=== PATIENT | female | born 1990 | race Caucasian/White ===

== ENCOUNTER 2021-05-30 10:00 | Observation (INO) | payer MEDICAID ==
[2021-05-30] MEDS ORDERED: PREN27TA7 OR (11:46)
== END 2021-05-30 11:56 | disposition home or self-care (01) ==
LOC: LDRP 10:00
PROVIDERS: ADMIT Obstetrics & Gynecology; ATTEND Obstetrics & Gynecology
DX: O10.913 Unspecified pre-existing hypertension complicating pregnancy, third trimester (principal); O36.5930 Maternal care for other known or suspected poor fetal growth, third trimester, not applicable or unspecified; Z3A.30 30 weeks gestation of pregnancy
CPT/HCPCS: 59025; 76818; 81002; 94760; G0378

== ENCOUNTER 2021-06-06 08:26 | Observation (INO) | payer MEDICAID ==
[~2021-06-06 08:26] MED LIST: PREN27TA7 OR
[2021-06-20] MEDS ORDERED: LABE200T6 GT (21:44)
== END 2021-06-13 17:01 | disposition home or self-care (01) ==
LOC: LDRP 06-13 14:30
PROVIDERS: ADMIT Obstetrics & Gynecology; ATTEND Obstetrics & Gynecology
DX: O36.5930 Maternal care for other known or suspected poor fetal growth, third trimester, not applicable or unspecified (principal); O10.913 Unspecified pre-existing hypertension complicating pregnancy, third trimester; Z3A.32 32 weeks gestation of pregnancy
CPT/HCPCS: 59025; 76818; 81002; 94760; G0378

== ENCOUNTER 2021-06-07 18:58 | Observation (INO) | payer MEDICAID ==
[~2021-06-07] VITALS: Ht 172.7 cm; Wt 82.6 kg
== END 2021-06-07 20:15 | disposition home or self-care (01) ==
LOC: LDRP 18:58
PROVIDERS: ADMIT Obstetrics & Gynecology; ATTEND Obstetrics & Gynecology
DX: O10.913 Unspecified pre-existing hypertension complicating pregnancy, third trimester (principal); O36.5930 Maternal care for other known or suspected poor fetal growth, third trimester, not applicable or unspecified; Z3A.31 31 weeks gestation of pregnancy
CPT/HCPCS: 59025; 76818; 81002; 94760; G0378

== ENCOUNTER 2021-06-19 08:15 | Observation (INO) | payer MEDICAID ==
[~2021-06-19] VITALS: Ht 172.7 cm; Wt 81.6 kg
[2021-06-20 17:27] LABS: Urine Bacteria FEW /hpf (None Seen); Urine Blood Negative /uL (Negative); Urine Specific Gravity 1.005 (1.001-1.035); Urine WBC 15 /hpf (0 - 5)
[2021-06-20 17:43] LABS: Protein, Urine 12.9 mg/dL (0.0-11.9)
[2021-06-20 18:05] LABS: Albumin 2.9 g/dL (3.4-5.0); Calcium 9.3 mg/dL (8.5-10.1); Potassium 3.5 mmol/L (3.5-5.1)
[2021-06-20 18:08] LABS: Basophils # (auto) 0 10 ^3/uL (0-0.2); Basophils % (auto) 0.3 % (0.0-2.0); Eosinophils # (auto) 0.1 10 ^3/uL (0-0.8); Eosinophils % (auto) 0.7 % (0.0-7.0); Hematocrit 36.4 % (36.0-46.0); Hemoglobin 12.4 g/dL (12.2-16.2); Lymphocytes # (auto) 2.6 10 ^3/uL (0.4-5.4); Lymphocytes % (auto) 21.1 % (10.0-50.0); Mean Corpuscular Volume 88.2 fL (80.0-100.0); Monocytes % (auto) 7.7 % (0.0-12.0); Neutrophils # (auto) 8.7 10 ^3/uL (1.6-8.6); Neutrophils % (auto) 70.2 % (37.0-80.0); Nucleated Red Blood Cells % 0.3 %; Red Blood Cells 4.13 10^6/uL (4.0-5.20); Red Cell Distribution Width 13.2 % (11.8-14.3); White Blood Cell 12.4 10^3/uL (4.4-10.8)
[2021-06-20 18:09] LABS: BUN/Creatinine Ratio 9.2; Bilirubin, Total 0.2 mg/dL (0.2-1.0); Total Protein 7.2 g/dL (6.4-8.2); Uric Acid 4.5 mg/dL (2.6-6.0)
[2021-06-20 18:44] LABS: INR 0.86 (0.9-1.15); Partial Thromboplastin Time 28.7 sec (23.6-33.0)
[2021-06-20] MEDS ORDERED: LABETALOL HCL 200 MG TAB PO ONE (19:15)
[2021-06-20] MEDS ORDERED: TERBUTALINE SULFATE 1 MG/ML 1ML VIAL SC SCH (19:15)
[2021-06-20] MEDS ORDERED: LABE200T6 PO (21:44)
[2021-06-20] MEDS ORDERED: BETAMETHASONE ACET (30mg/5ml) 5ml Vial 6mg/ml IM SCH (22:00)
== END 2021-06-20 21:53 | disposition home or self-care (01) ==
LOC: LDRP 06-20 14:44
PROVIDERS: ADMIT Obstetrics & Gynecology; ATTEND Obstetrics & Gynecology
DX: O10.913 Unspecified pre-existing hypertension complicating pregnancy, third trimester (principal); O36.5930 Maternal care for other known or suspected poor fetal growth, third trimester, not applicable or unspecified; Z3A.33 33 weeks gestation of pregnancy; Z79.899 Other long term (current) drug therapy
CPT/HCPCS: 36415; 59025; 76818; 80053; 81001; 81002; 82570; 84156; 84550; 85025; 85610; 85730; 94760; 96372; G0378; J0702; J3105

== ENCOUNTER 2021-06-21 20:52 | Observation (INO) | payer MEDICAID ==
[~2021-06-21] VITALS: Ht 172.7 cm; Wt 81.6 kg
[~2021-06-21 20:52] MED LIST changes: +LABE200T6 GT
[2021-06-21] MEDS ORDERED: BETAMETHASONE ACET (30mg/5ml) 5ml Vial 6mg/ml IM ONE (21:15)
== END 2021-06-21 21:51 | disposition home or self-care (01) ==
LOC: LDRP 20:52
PROVIDERS: ADMIT Obstetrics & Gynecology; ATTEND Obstetrics & Gynecology
DX: O60.03 Preterm labor without delivery, third trimester (principal); Z3A.33 33 weeks gestation of pregnancy
CPT/HCPCS: 59025; 81002; 96372; G0378

== ENCOUNTER 2021-06-26 10:01 | Observation (INO) | payer MEDICAID ==
[~2021-06-26] VITALS: Ht 172.7 cm; Wt 81.6 kg
[~2021-06-26 10:01] MED LIST changes: -LABE200T6 GT; +LABE200T6 PO
[2021-06-27] MEDS ORDERED: LABETALOL HCL 200 MG TAB PO ONE (13:45)
[2021-06-27 13:51] LABS: INR 0.86 (0.9-1.15); Partial Thromboplastin Time 26.4 sec (23.6-33.0)
[2021-06-27 14:06] LABS: Urine Bacteria FEW /hpf (None Seen); Urine Blood Negative /uL (Negative); Urine Specific Gravity 1.004 (1.001-1.035); Urine WBC 1 /hpf (0 - 5)
[2021-06-27 14:28] LABS: Basophils # (auto) 0.1 10 ^3/uL (0-0.2); Basophils % (auto) 0.9 % (0.0-2.0); Eosinophils # (auto) 0.1 10 ^3/uL (0-0.8); Hematocrit 36.1 % (36.0-46.0); Hemoglobin 12.3 g/dL (12.2-16.2); Lymphocytes # (auto) 2.2 10 ^3/uL (0.4-5.4); Lymphocytes % (auto) 15.9 % (10.0-50.0); Mean Corpuscular Hemoglobin 29.9 pg (28.0-32.0); Mean Corpuscular Hgb Conc. 34.2 g/dL (32.0-36.0); Mean Corpuscular Volume 87.5 fL (80.0-100.0); Monocytes # (auto) 1.1 10 ^3/uL (0-1.3); Monocytes % (auto) 7.8 % (0.0-12.0); Neutrophils # (auto) 10.4 10 ^3/uL (1.6-8.6); Neutrophils % (auto) 74.4 % (37.0-80.0); Red Blood Cells 4.12 10^6/uL (4.0-5.20); Red Cell Distribution Width 13.8 % (11.8-14.3)
[2021-06-27 14:44] LABS: Bilirubin, Total 0.2 mg/dL (0.2-1.0); Total Protein 7.3 g/dL (6.4-8.2)
[2021-06-27 14:44] LABS: Creatinine, Urine 19 mg/dL (30.0-125.0); Protein, Urine < 5.0 mg/dL (0.0-11.9)
[2021-06-27 14:53] LABS: Potassium 3.9 mmol/L (3.5-5.1)
[2021-06-27 14:54] LABS: Albumin 2.7 g/dL (3.4-5.0); BUN/Creatinine Ratio 15.6; Calcium 9.4 mg/dL (8.5-10.1); Uric Acid 5.2 mg/dL (2.6-6.0)
== END 2021-06-27 15:46 | disposition home or self-care (01) ==
LOC: LDRP 06-27 11:10
PROVIDERS: ADMIT Obstetrics & Gynecology; ATTEND Obstetrics & Gynecology
DX: O36.5930 Maternal care for other known or suspected poor fetal growth, third trimester, not applicable or unspecified (principal); O10.913 Unspecified pre-existing hypertension complicating pregnancy, third trimester; Z3A.34 34 weeks gestation of pregnancy; Z79.899 Other long term (current) drug therapy
CPT/HCPCS: 36415; 59025; 76818; 80053; 81001; 81002; 82570; 84156; 84550; 85025; 85610; 85730; 94760; G0378

== ENCOUNTER 2021-06-29 07:26 | Observation (INO) | payer MEDICAID ==
[2021-06-29 09:28] LABS: Protein, Urine 5.7 mg/dL (0.0-11.9)
[2021-06-29 09:59] LABS: 24 Hr. Total Protein, Urine 273.6 mg/24 Hr (<149.1)
== END 2021-06-29 10:13 | disposition home or self-care (01) ==
LOC: LDRP 08:39
PROVIDERS: ADMIT Obstetrics & Gynecology; ATTEND Obstetrics & Gynecology
DX: O10.913 Unspecified pre-existing hypertension complicating pregnancy, third trimester (principal); Z3A.35 35 weeks gestation of pregnancy
CPT/HCPCS: 59025; 81002; 84156; 94760; G0378

== ENCOUNTER 2021-07-02 07:28 | Observation (INO) | payer MEDICAID | END 2021-07-02 14:45 | disposition home or self-care (01) | LOC: LDRP 13:18 | PROVIDERS: ADMIT Obstetrics & Gynecology; ATTEND Obstetrics & Gynecology | DX: O10.913 Unspecified pre-existing hypertension complicating pregnancy, third trimester (principal); Z3A.35 35 weeks gestation of pregnancy | CPT/HCPCS: 76818; G0378 ==

== ENCOUNTER 2021-07-03 07:18 | Observation (INO) | payer MEDICAID | END 2021-07-03 11:12 | disposition home or self-care (01) | LOC: LDRP 09:48 | PROVIDERS: ADMIT Obstetrics & Gynecology; ATTEND Obstetrics & Gynecology | DX: O10.913 Unspecified pre-existing hypertension complicating pregnancy, third trimester (principal); Z3A.35 35 weeks gestation of pregnancy | CPT/HCPCS: 59025; 81002; 94760; G0378 ==

== ENCOUNTER 2021-07-05 10:00 | Observation (INO) | payer MEDICAID ==
[~2021-07-05] VITALS: Ht 172.7 cm; Wt 82.6 kg
[2021-07-05] MEDS ORDERED: LABE300T3 PO (11:09)
== END 2021-07-05 12:21 | disposition home or self-care (01) ==
LOC: LDRP 10:00
PROVIDERS: ADMIT Obstetrics & Gynecology; ATTEND Obstetrics & Gynecology
DX: O10.913 Unspecified pre-existing hypertension complicating pregnancy, third trimester (principal); O62.9 Abnormality of forces of labor, unspecified; Z3A.35 35 weeks gestation of pregnancy
CPT/HCPCS: 59025; 76818; 81002; 94760; G0378

== ENCOUNTER 2021-07-10 08:00 | Observation (INO) | payer MEDICAID ==
[~2021-07-10 08:00] MED LIST changes: -LABE200T6 PO; +LABE300T3 PO
[2021-07-10 10:49] LABS: Basophils # (auto) 0.1 10 ^3/uL (0-0.2); Basophils % (auto) 0.5 % (0.0-2.0); Eosinophils # (auto) 0.1 10 ^3/uL (0-0.8); Eosinophils % (auto) 1.1 % (0.0-7.0); Hematocrit 35.9 % (36.0-46.0); Hemoglobin 12.8 g/dL (12.2-16.2); Lymphocytes # (auto) 1.7 10 ^3/uL (0.4-5.4); Lymphocytes % (auto) 16.6 % (10.0-50.0); Mean Corpuscular Hemoglobin 31.3 pg (28.0-32.0); Mean Corpuscular Hgb Conc. 35.6 g/dL (32.0-36.0); Mean Corpuscular Volume 87.7 fL (80.0-100.0); Monocytes # (auto) 0.8 10 ^3/uL (0-1.3); Monocytes % (auto) 7.4 % (0.0-12.0); Neutrophils # (auto) 7.6 10 ^3/uL (1.6-8.6); Neutrophils % (auto) 74.4 % (37.0-80.0); Red Cell Distribution Width 14.2 % (11.8-14.3); White Blood Cell 10.3 10^3/uL (4.4-10.8)
[2021-07-10 11:01] LABS: Urine Bacteria FEW /hpf (None Seen); Urine Blood Negative /uL (Negative); Urine Specific Gravity 1.002 (1.001-1.035); Urine WBC <1 /hpf (0 - 5)
[2021-07-10 11:14] LABS: INR 0.88 (0.9-1.15)
[2021-07-10 11:15] LABS: Albumin 2.6 g/dL (3.4-5.0); Calcium 9.1 mg/dL (8.5-10.1); Partial Thromboplastin Time 28.1 sec (23.6-33.0); Potassium 3.9 mmol/L (3.5-5.1)
[2021-07-10 11:17] LABS: Protein, Urine < 5.0 mg/dL (0.0-11.9)
[2021-07-10 11:19] LABS: BUN/Creatinine Ratio 9.3; Bilirubin, Total 0.3 mg/dL (0.2-1.0); Total Protein 7.2 g/dL (6.4-8.2); Uric Acid 5.5 mg/dL (2.6-6.0)
[2021-07-10 11:27] LABS: Creatinine, Urine 7 mg/dL (30.0-125.0)
== END 2021-07-10 12:20 | disposition home or self-care (01) ==
LOC: LDRP 08:00
PROVIDERS: ADMIT Obstetrics & Gynecology; ATTEND Obstetrics & Gynecology
DX: O10.913 Unspecified pre-existing hypertension complicating pregnancy, third trimester (principal); Z3A.36 36 weeks gestation of pregnancy
CPT/HCPCS: 36415; 59025; 76818; 80053; 81001; 81002; 82570; 84156; 84550; 85025; 85610; 85730; 94760; G0378

== ENCOUNTER 2021-07-12 08:00 | Observation (INO) | payer MEDICAID ==
[2021-07-12 08:58] LABS: Protein, Urine 6.7 mg/dL (0.0-11.9)
[2021-07-12 09:45] LABS: Urine Bacteria NONE SEEN /hpf (None Seen); Urine Blood Negative /uL (Negative); Urine Specific Gravity 1.003 (1.001-1.035); Urine WBC 6 /hpf (0 - 5)
[2021-07-12 09:52] LABS: Protein, Urine < 5.0 mg/dL (0.0-11.9)
[2021-07-12 10:01] LABS: Creatinine, Urine 10 mg/dL (30.0-125.0)
[2021-07-12 10:03] LABS: 24 Hr. Total Protein, Urine 184.2 mg/24 Hr (<149.1)
== END 2021-07-12 10:25 | disposition home or self-care (01) ==
LOC: LDRP 08:00
PROVIDERS: ADMIT Obstetrics & Gynecology; ATTEND Obstetrics & Gynecology
DX: O10.913 Unspecified pre-existing hypertension complicating pregnancy, third trimester (principal); Z3A.36 36 weeks gestation of pregnancy; Z79.899 Other long term (current) drug therapy
CPT/HCPCS: 59025; 76818; 81001; 81002; 82570; 84156; G0378

== ENCOUNTER 2021-07-17 08:00 | Observation (INO) | payer MEDICAID | END 2021-07-17 09:40 | disposition home or self-care (01) | LOC: LDRP 08:00 | PROVIDERS: ADMIT Obstetrics & Gynecology; ATTEND Obstetrics & Gynecology | DX: O10.913 Unspecified pre-existing hypertension complicating pregnancy, third trimester (principal); Z3A.37 37 weeks gestation of pregnancy | CPT/HCPCS: 59025; 76818; 81002; G0378 ==

== ENCOUNTER 2021-07-20 08:00 | Observation (INO) | payer MEDICAID ==
[2021-07-20 09:12] LABS: Basophils # (auto) 0.1 10 ^3/uL (0-0.2); Basophils % (auto) 0.7 % (0.0-2.0); Eosinophils # (auto) 0.1 10 ^3/uL (0-0.8); Eosinophils % (auto) 1.2 % (0.0-7.0); Hematocrit 35.7 % (36.0-46.0); Hemoglobin 12.4 g/dL (12.2-16.2); Lymphocytes # (auto) 1.6 10 ^3/uL (0.4-5.4); Lymphocytes % (auto) 15.5 % (10.0-50.0); Mean Corpuscular Hemoglobin 30.7 pg (28.0-32.0); Mean Corpuscular Hgb Conc. 34.8 g/dL (32.0-36.0); Mean Corpuscular Volume 88.3 fL (80.0-100.0); Monocytes # (auto) 0.9 10 ^3/uL (0-1.3); Monocytes % (auto) 8.6 % (0.0-12.0); Neutrophils # (auto) 7.7 10 ^3/uL (1.6-8.6); Red Blood Cells 4.04 10^6/uL (4.0-5.20); Red Cell Distribution Width 14.4 % (11.8-14.3); White Blood Cell 10.3 10^3/uL (4.4-10.8)
[2021-07-20 09:17] LABS: Urine Bacteria NONE SEEN /hpf (None Seen); Urine Blood Negative /uL (Negative); Urine Specific Gravity 1.003 (1.001-1.035); Urine WBC 4 /hpf (0 - 5)
[2021-07-20 09:26] LABS: INR 0.87 (0.9-1.15); Partial Thromboplastin Time 28.6 sec (23.6-33.0)
[2021-07-20 09:31] LABS: Potassium 4.4 mmol/L (3.5-5.1)
[2021-07-20 09:38] LABS: Albumin 2.5 g/dL (3.4-5.0); Bilirubin, Total 0.3 mg/dL (0.2-1.0); Calcium 9.4 mg/dL (8.5-10.1); Uric Acid 5.2 mg/dL (2.6-6.0)
[2021-07-20 09:38] LABS: Creatinine, Urine 14 mg/dL (30.0-125.0); Protein, Urine < 5.0 mg/dL (0.0-11.9)
== END 2021-07-20 09:55 | disposition still patient (30) ==
LOC: LDRP 08:00
PROVIDERS: ADMIT Obstetrics & Gynecology; ATTEND Obstetrics & Gynecology
DX: O10.913 Unspecified pre-existing hypertension complicating pregnancy, third trimester (principal); Z3A.38 38 weeks gestation of pregnancy; Z87.891 Personal history of nicotine dependence
CPT/HCPCS: 36415; 59025; 76818; 80053; 81001; 81002; 82570; 84156; 84550; 85025; 85610; 85730; 94760; G0378

== ENCOUNTER 2021-07-24 08:00 | Observation (INO) | payer MEDICAID | END 2021-07-24 09:45 | disposition home or self-care (01) | LOC: LDRP 08:00 | PROVIDERS: ADMIT Obstetrics & Gynecology; ATTEND Obstetrics & Gynecology | DX: O10.913 Unspecified pre-existing hypertension complicating pregnancy, third trimester (principal); O62.9 Abnormality of forces of labor, unspecified; Z3A.38 38 weeks gestation of pregnancy; Z87.891 Personal history of nicotine dependence | CPT/HCPCS: 59025; 76818; 81002; G0378 ==

== ENCOUNTER 2021-07-26 12:45 | Inpatient (IN) | payer MEDICAID ==
[~2021-07-26] VITALS: Ht 172.7 cm; Wt 86.6 kg
[2021-07-26] MEDS ORDERED: BUTORPHANOL TARTRATE 2 MG/1 ML VIAL IV PRN ×2 (13:30)
[2021-07-26] MEDS ORDERED: PROMETHAZINE HCL 25 MG/ML 1ML IV PRN (13:30)
[2021-07-26] MEDS ORDERED: PHISODERM TOP SOLN 240ML BTL TOP PRN (13:30)
[2021-07-26] MEDS ORDERED: LIDOCAINE 2%HCL (LOCAL ANESTH.) INJ 10ml MDV IJ PRN (13:30)
[2021-07-26] MEDS: LACTATED RINGER'S 1,000 ML IV SCH ×2 (13:46→22:30)
[2021-07-26 14:01] LABS: Basophils # (auto) 0.1 10 ^3/uL (0-0.2); Basophils % (auto) 0.7 % (0.0-2.0); Eosinophils # (auto) 0.1 10 ^3/uL (0-0.8); Eosinophils % (auto) 0.6 % (0.0-7.0); Hematocrit 36.6 % (36.0-46.0); Hemoglobin 12.7 g/dL (12.2-16.2); Lymphocytes # (auto) 2.3 10 ^3/uL (0.4-5.4); Lymphocytes % (auto) 17.1 % (10.0-50.0); Mean Corpuscular Hemoglobin 30.4 pg (28.0-32.0); Mean Corpuscular Hgb Conc. 34.7 g/dL (32.0-36.0); Mean Corpuscular Volume 87.8 fL (80.0-100.0); Monocytes # (auto) 0.9 10 ^3/uL (0-1.3); Monocytes % (auto) 6.8 % (0.0-12.0); Neutrophils # (auto) 10.2 10 ^3/uL (1.6-8.6); Neutrophils % (auto) 74.8 % (37.0-80.0); Red Blood Cells 4.17 10^6/uL (4.0-5.20); Red Cell Distribution Width 14.2 % (11.8-14.3); White Blood Cell 13.6 10^3/uL (4.4-10.8)
[2021-07-26 14:20] LABS: INR 0.88 (0.9-1.15); Partial Thromboplastin Time 27.9 sec (23.6-33.0)
[2021-07-26 14:23] LABS: Albumin 2.7 g/dL (3.4-5.0); Calcium 9.4 mg/dL (8.5-10.1); Potassium 3.7 mmol/L (3.5-5.1)
[2021-07-26 14:31] LABS: BUN/Creatinine Ratio 15.5; Bilirubin, Total 0.3 mg/dL (0.2-1.0); Total Protein 7.3 g/dL (6.4-8.2); Uric Acid 5.5 mg/dL (2.6-6.0)
[2021-07-26 14:35] LABS: Alcohol, Urine < 3.0 mg/dL (0-10); Amphetamine Screen, Urine NEGATIVE (NEGATIVE); Barbiturate Scree,Urine NEGATIVE (NEGATIVE); Benzodiazephine Screen, Urine NEGATIVE (NEGATIVE); Cannabinoid Screen, Urine NEGATIVE (NEGATIVE); Cocaine Screen, Urine NEGATIVE (NEGATIVE); Opiate Scree,Urine NEGATIVE (NEGATIVE); Phencyclidine Screen, Urine NEGATIVE (NEGATIVE)
[2021-07-26] MEDS: miSOPROStol 50 MCG per PRE-CUT 1/2 TAB PO PRN ×2 (14:41→18:42)
[2021-07-26 14:52] LABS: Urine Bacteria FEW /hpf (None Seen); Urine Blood Negative /uL (Negative); Urine Specific Gravity 1.013 (1.001-1.035); Urine WBC 1 /hpf (0 - 5)
[2021-07-26] MEDS ORDERED: LIDOCAINE HCL 2 %PF INJ 10ML AMP IJ ONE (22:30)
[2021-07-26] MEDS ORDERED: ROPIVACAINE HCL 200 ML EPI SCH (22:30)
[2021-07-26] MEDS ORDERED: ePHEDrine SULFATE 50 MG/ML AMP IV ONE (22:30)
[2021-07-26] MEDS ORDERED: fentaNYL CITRATE 100 MCG/2 ML VL IV ONE (22:30)
[2021-07-26] MEDS ORDERED: LACTATED RINGER'S 1,000 ML IV ONE (22:30)
[2021-07-26] MEDS ORDERED: NALOXONE HCL 0.4 MG/ML VIAL IV ONE (22:30)
[2021-07-26] MEDS: LABETALOL HCL 200 MG TAB PO SCH (22:33)
[2021-07-27] MEDS: miSOPROStol 50 MCG per PRE-CUT 1/2 TAB PO PRN ×2 (00:02→04:14)
[2021-07-27 06:06] LABS: RPR Non Reactive (Non Reactive)
[2021-07-27] MEDS ORDERED: METHYLERGONOVINE MALEATE 0.2 MG/ML AMP IM PRN (07:00)
[2021-07-27] MEDS ORDERED: miSOPROStol 100 mcg TAB SL PRN (07:00)
[2021-07-27] MEDS ORDERED: LACT. RINGERS/OXYTOCIN 20UNITS 500 ML IV ONE ×2 (07:00→07:30)
[2021-07-27] MEDS ORDERED: LACT. RINGERS/OXYTOCIN 20UNITS 1,000 ML IV SCH (07:00)
[2021-07-27] MEDS ORDERED: miSOPROStol 100 mcg TAB PR PRN (07:00)
[2021-07-27] MEDS ORDERED: TERBUTALINE SULFATE 1 MG/ML 1ML VIAL SC PRN (07:00)
[2021-07-27] MEDS: WITCH HAZEL-GLYCERIN PAD TOP PRN ×2 (07:09→22:38)
[2021-07-27] MEDS: DERMOPLAST 60ML BOTTLE TOP PRN ×2 (07:09→22:38)
[2021-07-27] MEDS: LACTATED RINGER'S 1,000 ML IV SCH (07:28)
[2021-07-27] MEDS: LABETALOL HCL 200 MG TAB PO SCH ×2 (09:58→22:38)
[2021-07-27] MEDS ORDERED: ACETAMINOPHEN 325 MG TAB PO PRN (14:15)
[2021-07-27] MEDS ORDERED: ONDANSETRON ODT 4 MG TAB PO PRN (14:15)
[2021-07-27] MEDS: IBUPROFEN 600 MG TAB PO PRN ×2 (14:54→22:34)
[2021-07-27 14:58] VITALS: BP 133/78
[2021-07-27 19:00] VITALS: BP 117/70
[2021-07-27] MEDS ORDERED: DOCUSATE SOD 100 MG CAP PO SCH (22:00)
[2021-07-27 22:56] VITALS: BP 121/85
[2021-07-28 03:00] VITALS: BP 109/64
[2021-07-28 07:30] VITALS: BP 138/86
[2021-07-28] MEDS: LABETALOL HCL 200 MG TAB PO SCH (10:23)
[2021-07-28 10:53] VITALS: BP 141/78
[2021-07-28 14:30] VITALS: BP 135/80
[2021-07-28 14:51] VITALS: BP 135/80
== END 2021-07-28 14:51 | disposition home or self-care (01) | DRG 560 ==
LOC: LDRP 12:45
PROVIDERS: ADMIT Obstetrics & Gynecology; ATTEND Obstetrics & Gynecology
PROC: 3E0DXGC Introduction of Other Therapeutic Substance into Mouth and Pharynx, External Approach (ICD-10-PCS; 2021-07-26)
PROC: 10E0XZZ Delivery of Products of Conception, External Approach (ICD-10-PCS; principal; 2021-07-27)
PROC: 3E0R3BZ Introduction of Anesthetic Agent into Spinal Canal, Percutaneous Approach (ICD-10-PCS; 2021-07-27)
PROC: 00HU33Z Insertion of Infusion Device into Spinal Canal, Percutaneous Approach (ICD-10-PCS; 2021-07-27)
PROC: 0UQMXZZ Repair Vulva, External Approach (ICD-10-PCS; 2021-07-27)
DX: O69.81X0 Labor and delivery complicated by cord around neck, without compression, not applicable or unspecified (principal); Z37.0 Single live birth; O16.4 Unspecified maternal hypertension, complicating childbirth; Z3A.38 38 weeks gestation of pregnancy; O71.82 Other specified trauma to perineum and vulva; Z20.822 Contact with and (suspected) exposure to COVID-19
CPT/HCPCS: 36415; 59025; 62282; 80053; 80307; 81001; 84550; 85025; 85610; 85730; 86592; 86850; 86900; 86901; 94760; 96360; 96361; 96365; 96366; G0378; J2590